=== PATIENT | female | born 1940 | race Hispanic/Latino ===

== ENCOUNTER 2017-02-23 10:29 | Outpatient (CLI) | payer MEDICARE ==
--- NOTE | 2017-02-23 12:42 | XRay Report ---
CHEST 2 VIEWS INDICATION: Breast cancer with chest, abdominal, bone pain. COMPARISON: None similar at this institution. FINDINGS: PA and lateral chest radiographs demonstrate top normal heart size. Aortic atherosclerotic calcifications. Right hemidiaphragm slightly elevated. Clear lungs without pleural effusions or CHF. Demineralized bones with various degenerative changes. Probable cholecystectomy clips. Right axillary surgical clips. CONCLUSION: No acute chest process with few incidental findings, as above. Thank you for the opportunity to participate in this patient's care.
--- NOTE | 2017-02-23 14:09 | XRay Report ---
Metastatic skeletal survey. History: Breast cancer with chest pain. Findings: The study is limited due to patient's body habitus. There are no suspicious lytic or blastic skeletal lesions. Extensive discogenic changes are seen throughout the dorsal and lumbar spine. No rib lesions are identified. Hyperostosis frontalis interna is present. Impression: No evidence of skeletal metastasis.
--- NOTE | 2017-02-23 15:31 | Nuclear Medicine Report ---
NUCLEAR MEDICINE WHOLE-BODY BONE SCAN: 02/23/17 11:00:00 CLINICAL: Breast cancer with chest pain and bone pain. COMPARISON: Metastatic bone survey on the same day. TECHNIQUE: 25.0millicuries technetium 99m MDP was injected intravenously and whole body scans were obtained at 3 hours. FINDINGS: Normal distribution of radionuclide in the skeleton and soft tissues except for foci of benign uptake in the knees and feet consistent with arthritis. No suspicious uptake. IMPRESSION: Negative for metastatic disease.
== END 2017-02-23 10:30 | disposition home or self-care (01) ==
LOC: NM 10:29
DX: C50.412 Malignant neoplasm of upper-outer quadrant of left female breast (principal); R07.9 Chest pain, unspecified; M89.9 Disorder of bone, unspecified; M51.86 Other intervertebral disc disorders, lumbar region; I70.0 Atherosclerosis of aorta; J98.6 Disorders of diaphragm
CPT/HCPCS: 71020; 77074; 78306; A9503

== ENCOUNTER 2019-09-05 07:15 | Outpatient (CLI) | payer MEDICARE ==
--- NOTE | 2019-08-29 10:03 | XRay Report ---
LEFT FOOT 3 VIEWS INDICATION / CLINICAL INFORMATION: Chronic ulcer/foreign body COMPARISON: None available. FINDINGS: BONES and JOINT(S): There is generalized osteopenia. No acute fracture or dislocation is seen. No str ucture bony changes are identified. Mild arthritis is seen along the mid foot with calcaneal enthesop hytes. SOFT TISSUES: There is diffuse atherosclerosis. No distinct ulcer is identified. No radiopaque foreig n body is seen. Mild edema is noted dorsally along the forefoot. ADDITIONAL FINDINGS: None. IMPRESSION: 1. No distinct ulcer or radiopaque foreign body. 2. Additional findings as above. Signer Name: Eduardo Hernandez MD Signed: 08/29/2019 9:58 AM Workstation Name: [id number]
== END 2019-09-05 07:16 | disposition home or self-care (01) ==
LOC: PET 07:15
PROVIDERS: ATTEND Internal Medicine Hematology & Oncology
DX: L97.529 Non-pressure chronic ulcer of other part of left foot with unspecified severity (principal); M13.872 Other specified arthritis, left ankle and foot; M77.32 Calcaneal spur, left foot; I70.8 Atherosclerosis of other arteries; I70.90 Unspecified atherosclerosis; C50.411 Malignant neoplasm of upper-outer quadrant of right female breast
CPT/HCPCS: 82962

== ENCOUNTER 2019-10-17 08:41 | Outpatient (CLI) | payer MEDICARE ==
--- NOTE | 2019-10-17 12:20 | Cat Scan Report ---
CT chest wo con, CT abdomen pelvis wo con INDICATION: MALIGNANT NEOPLASM OF FEMALE BREAST LT. TECHNIQUE: All CT scans at this location are performed using CT dose reduction for ALARA by means of automated e xposure control. COMPARISON: None available. FINDINGS: CT chest Minimally prominent pretracheal node, but no significant mediastinal or hilar adenopathy. Surgical cl ips in the right axilla from previous node dissection. Several small nodes are demonstrated in the le ft axilla; again, no significant adenopathy. Mild, diffuse groundglass opacity throughout both lungs, but no significant pulmonary or pleural lesi ons. CT ABDOMEN: Cholecystectomy. No obvious liver lesions. Spleen, pancreas, kidneys and adrenals are negative. Abdom inal aorta is quite atherosclerotic but normal in size. No adenopathy. CT PELVIS: Normal postmenopausal uterus. Urinary bladder is mostly collapsed but appears unremarkable. No abnorm al mass or pelvic adenopathy. Extensive degenerative change throughout the entire spine. No skeletal cast disease. IMPRESSION: 1. No evidence of metastasis. Signer Name: Abe Flor MD Signed: 10/17/2019 12:16 PM Workstation Name: [id number]
--- NOTE | 2019-10-17 12:59 | Nuclear Medicine Report ---
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 TECHNIQUE: 27.5 mCi of Tc-99m MDP were injected IV. Whole body images were obtained. COMPARISON: Bone scan dated 02/23/2017. CT chest abdomen and pelvis performed the same day.. FINDINGS: Skeletal Structures: Fairly symmetric, likely degenerative uptake is present involving the shoulders , sternoclavicular joints, lumbar spine, right knee and bilateral feet.. Skeletal Lesions: None. Soft Tissues: Normal. Kidneys: Normal, symmetric activity. Additional Findings: None. IMPRESSION: Degenerative findings as described which appear stable since 02/23/2017. No evidence for osseous meta stasis.. Signer Name: Romaine Balderas Jr, MD Signed: 10/17/2019 12:55 PM Workstation Name: [id number]
== END 2019-10-17 08:42 | disposition home or self-care (01) ==
LOC: NM 08:41
PROVIDERS: ATTEND Internal Medicine Hematology & Oncology
DX: M47.899 Other spondylosis, site unspecified (principal); C50.412 Malignant neoplasm of upper-outer quadrant of left female breast; C50.411 Malignant neoplasm of upper-outer quadrant of right female breast; D63.0 Anemia in neoplastic disease
CPT/HCPCS: 71250; 74176; 78306; A9503